=== PATIENT | female | born 1990 | race Caucasian/White ===

== ENCOUNTER 2019-06-25 08:39 | Emergency (ER) | payer SELFPAY ==
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
[2019-06-25 09:52] VITALS: BP 131/78; TEMP 98.2; O2SAT 96
[2019-06-25 10:19] LABS: Urine Blood NEGATIVE (NEG); Urine Glucose NEGATIVE (NEG); Urine Protein NEGATIVE (NEG); Urine pH 6.5 (5.0-7.0)
== END 2019-06-25 09:47 | disposition home or self-care (01) ==
LOC: ER 08:39
DX: M54.5 Low back pain (principal); V49.40XA Driver injured in collision with unspecified motor vehicles in traffic accident, initial encounter; Z91.018 Allergy to other foods
CPT/HCPCS: 72100; 81003; 81025; 99283